=== PATIENT | male | born 1950 | race Caucasian/White ===

== ENCOUNTER 2018-08-01 17:29 | Inpatient (IN) | payer OTHER, MEDICARE ==
[~2018-08-01] VITALS: Ht 167.6 cm; Wt 76.6 kg
[~2018-08-01 17:29] MED LIST: ATOR10TA9 PO; BENA20TA4 PO; BUSP5TAB2 PO; CELE200C PO; GABA600T PO; METF500T17 PO; OXYC10TA6 PO; TOPI50TA8 PO
[2018-08-01] MEDS ORDERED: SODIUM CHLORIDE 0.9%, 500ML IVBOLUS ONE (18:00)
[2018-08-01 18:32] LABS: TROPONIN I < 0.015 ng/mL (0.000-0.045)
[2018-08-01] MEDS ORDERED: SODIUM CHLORIDE 0.9% 1,000ML IVBOLUS ONE (19:00)
[2018-08-01 22:23] LABS: MICROSCOPIC INDICATED
[2018-08-01 22:26] LABS: CULTURE INDICATED? NO
[2018-08-01 22:34] LABS: AMPHETAMINE SCREEN, URINE Negative (Negative); BARBITURATE SCREEN, URINE Positive (Negative); BENZODIAZEPINE SCREEN, URINE Negative (Negative); CANNABINOID SCREEN, URINE Negative (Negative); COCAINE SCREEN, URINE Negative (Negative); METHADONE SCREEN, URINE Negative (Negative); OPIATE SCREEN, URINE Positive (Negative)
[2018-08-02] MEDS ORDERED: SODIUM CHLORIDE 0.9% 1,000 ML IV SCH ×3 (00:08→15:00)
[2018-08-02] MEDS ORDERED: DEXTROSE 4 GM TAB.CHEW PO PRN (00:30)
[2018-08-02] MEDS ORDERED: PHARMACY MAY ADJ FOR RENAL FX MC SCH (00:30)
[2018-08-02] MEDS: INSULIN LISPRO 100 UNITS/ML, PEN SQ-INSULIN SCH ×5 (00:30→21:32)
[2018-08-02] MEDS ORDERED: DEXTROSE 50%, 50ML SYRINGE IVPush PRN (00:30)
[2018-08-02] MEDS ORDERED: GLUCAGON 1 MG IM PRN (00:30)
[2018-08-02 00:37] VITALS: BP 138/73
[2018-08-02] MEDS: HEPARIN 5,000 UNITS/ML, 1ML SQ SCH ×3 (01:09→17:01)
[2018-08-02] MEDS: PIPERACILLIN/TAZO/PMX 3.375GM 50 ML IV SCH ×3 (01:12→17:02)
[2018-08-02] MEDS ORDERED: SODIUM CHLORIDE 0.9% 1,000ML IVBOLUS ONE (03:00)
[2018-08-02] MEDS: SODIUM CHLORIDE FLUSH 10ML SYR IVF SCH ×2 (09:00→21:33)
[2018-08-02 09:26] LABS: ALANINE AMINOTRANSFERASE 63 U/L (12-78); ALBUMIN 2.2 g/dL (3.4-5.0); ANION GAP 10 mmol/L (5-15); CALCIUM 9.8 mg/dL (8.5-10.1); CHLORIDE 104 mmol/L (98-107); CREATININE 0.95 mg/dL (0.7-1.3)
[2018-08-02 09:28] LABS: ALKALINE PHOSPHATASE 535 U/L (45-117); BILIRUBIN,TOTAL 0.8 mg/dL (0.2-1.0); TOTAL PROTEIN 9.3 g/dL (6.4-8.2)
[2018-08-02 09:38] LABS: BASOPHILS # (AUTO) 0.01 x10^3/uL (0-0.1); BASOPHILS % (AUTO) 0 % (0-1); EOSINOPHILS # (AUTO) 0.02 x10^3/uL (0-0.4); EOSINOPHILS % (AUTO) 0 % (1-7); LYMPHOCYTES % (AUTO) 9 % (22-44); MD NO; MEAN CORPUSCULAR HEMOGLOBIN 31.8 pg (27.5-34.5); MEAN CORPUSCULAR HGB CONC 34.1 g/dL (33.2-36.2); MEAN PLATELET VOLUME 7.6 fL (7.4-10.4); MONOCYTES # (AUTO) 0.37 x10^3/uL (0.2-0.8); MONOCYTES % (AUTO) 3 % (2-9); NEUTROPHILS # (AUTO) 9.33 x10^3/uL (1.8-6.8); NEUTROPHILS % (AUTO) 87 % (42-75); PLATELET COUNT 692 x10^3/uL (130-400); RED BLOOD COUNT 3.93 x10^6/uL (4.38-5.82); RED CELL DISTRIBUTION WIDTH 13.1 % (9.4-14.8)
[2018-08-02] MEDS ORDERED: MORPHINE SULFATE 4 MG/ML, 1ML IVPush PRN (10:00)
[2018-08-02 10:43] VITALS: BP 128/77
[2018-08-02 12:56] VITALS: BP 119/72
[2018-08-02] MEDS ORDERED: LIDOCAINE-MPF 2%, 2ML ONE (13:26)
[2018-08-02] MEDS ORDERED: morphine SULFATE 10 MG/ML, 1ML ONE (13:33)
[2018-08-02] MEDS ORDERED: FENTANYL PF 100 MCG/2ML ONE (13:55)
[2018-08-02] MEDS ORDERED: MIDAZOLAM 1 MG/ML, 5ML ONE (13:55)
[2018-08-02] MEDS ORDERED: NALOXONE 1 MG/ML, 2ML ONE (13:55)
[2018-08-02] MEDS ORDERED: FLUMAZENIL 0.1 MG/1 ML, 5ML ONE (13:55)
[2018-08-02] MEDS: MORPHINE SULFATE 4 MG/ML, 1ML IVPush PRN ×2 (15:17→21:30)
[2018-08-02] MEDS ORDERED: LORazepam 0.5MG TABLET ONE (16:10)
[2018-08-02] MEDS: LORazepam 0.5MG TABLET PO PRN (16:14)
[2018-08-02] MEDS ORDERED: CARVEDILOL 6.25 MG TABLET ONE (16:57)
[2018-08-02] MEDS: CARVEDILOL 6.25 MG TABLET PO SCH (17:02)
[2018-08-02] MEDS ORDERED: OxyconTIN ER 10 MG TAB.ER ONE (17:18)
[2018-08-02] MEDS: OXYcodone IR 5MG TABLET PO PRN ×2 (17:25→23:03)
[2018-08-02 18:42] VITALS: BP 110/76
[2018-08-03] MEDS: PIPERACILLIN/TAZO/PMX 3.375GM 50 ML IV SCH ×4 (01:01→17:17)
[2018-08-03] MEDS: MORPHINE SULFATE 4 MG/ML, 1ML IVPush PRN ×3 (01:40→12:20)
[2018-08-03] MEDS: HEPARIN 5,000 UNITS/ML, 1ML SQ SCH ×3 (01:40→16:49)
[2018-08-03] MEDS: SODIUM CHLORIDE 0.9% 1,000 ML IV SCH ×3 (01:41→21:19)
[2018-08-03 03:53] VITALS: BP 139/88
[2018-08-03 05:34] LABS: ALBUMIN 1.9 g/dL (3.4-5.0); ANION GAP 13 mmol/L (5-15); CALCIUM 9.1 mg/dL (8.5-10.1); CHLORIDE 100 mmol/L (98-107)
[2018-08-03 05:36] LABS: BASOPHILS # (AUTO) 0.03 x10^3/uL (0-0.1); BASOPHILS % (AUTO) 0 % (0-1); EOSINOPHILS # (AUTO) 0.07 x10^3/uL (0-0.4); EOSINOPHILS % (AUTO) 1 % (1-7); LYMPHOCYTES # (AUTO) 1.29 x10^3/uL (1-3.4); LYMPHOCYTES % (AUTO) 14 % (22-44); MD NO; MEAN CORPUSCULAR HEMOGLOBIN 32.6 pg (27.5-34.5); MEAN CORPUSCULAR HGB CONC 34.6 g/dL (33.2-36.2); MEAN CORPUSCULAR VOLUME 94.3 fL (81-97); MEAN PLATELET VOLUME 7.5 fL (7.4-10.4); MONOCYTES # (AUTO) 0.52 x10^3/uL (0.2-0.8); MONOCYTES % (AUTO) 6 % (2-9); NEUTROPHILS # (AUTO) 7.26 x10^3/uL (1.8-6.8); NEUTROPHILS % (AUTO) 79 % (42-75); PLATELET COUNT 584 x10^3/uL (130-400); RED BLOOD COUNT 3.52 x10^6/uL (4.38-5.82); RED CELL DISTRIBUTION WIDTH 13.3 % (9.4-14.8)
[2018-08-03 05:38] LABS: ALANINE AMINOTRANSFERASE 50 U/L (12-78); ALKALINE PHOSPHATASE 487 U/L (45-117); BILIRUBIN,TOTAL 0.8 mg/dL (0.2-1.0); CREATININE 0.76 mg/dL (0.7-1.3); TOTAL PROTEIN 8.2 g/dL (6.4-8.2)
[2018-08-03] MEDS: OXYcodone IR 5MG TABLET PO PRN (05:55)
[2018-08-03] MEDS: CARVEDILOL 6.25 MG TABLET PO SCH ×2 (05:55→16:49)
[2018-08-03] MEDS: INSULIN LISPRO 100 UNITS/ML, PEN SQ-INSULIN SCH ×4 (07:00→21:18)
[2018-08-03] MEDS: SODIUM CHLORIDE FLUSH 10ML SYR IVF SCH ×2 (08:29→21:18)
[2018-08-03 08:45] VITALS: BP 133/94
[2018-08-03] MEDS: ONDANSETRON 2MG/ML, 2ML IVPush PRN (10:12)
[2018-08-03] MEDS: GABAPENTIN 300 MG CAPSULE PO SCH ×3 (10:13→21:17)
[2018-08-03] MEDS: BUSPIRONE 5 MG TABLET PO SCH ×2 (11:06→21:00)
[2018-08-03 14:47] VITALS: BP 131/90
[2018-08-03] MEDS ORDERED: BUSPIRONE 5 MG TABLET PO SCH (16:00)
[2018-08-03] MEDS: ONDANSETRON ODT 4 MG PO PRN (17:17)
[2018-08-03] MEDS ORDERED: OMNIPAQUE 350 MG/ML, 100ML BOTTLE ONE (19:48)
[2018-08-03 20:36] VITALS: BP 108/70
[2018-08-03] MEDS: ATORVASTATIN 10 MG TABLET PO SCH (21:17)
[2018-08-04] MEDS: PIPERACILLIN/TAZO/PMX 3.375GM 50 ML IV SCH ×4 (00:29→17:42)
[2018-08-04 01:53] VITALS: BP_SYST 108; BP_SYST 113; BP_DIAS 69; BP_DIAS 74
[2018-08-04] MEDS: HEPARIN 5,000 UNITS/ML, 1ML SQ SCH ×3 (02:01→17:34)
[2018-08-04 05:07] LABS: BASOPHILS # (AUTO) 0.03 x10^3/uL (0-0.1); BASOPHILS % (AUTO) 0 % (0-1); EOSINOPHILS # (AUTO) 0.07 x10^3/uL (0-0.4); EOSINOPHILS % (AUTO) 1 % (1-7); LYMPHOCYTES # (AUTO) 0.86 x10^3/uL (1-3.4); LYMPHOCYTES % (AUTO) 11 % (22-44); MD NO; MEAN CORPUSCULAR HGB CONC 35.1 g/dL (33.2-36.2); MEAN CORPUSCULAR VOLUME 94.1 fL (81-97); MEAN PLATELET VOLUME 7.4 fL (7.4-10.4); MONOCYTES # (AUTO) 0.44 x10^3/uL (0.2-0.8); MONOCYTES % (AUTO) 6 % (2-9); NEUTROPHILS # (AUTO) 6.42 x10^3/uL (1.8-6.8); NEUTROPHILS % (AUTO) 82 % (42-75); PLATELET COUNT 546 x10^3/uL (130-400); RED BLOOD COUNT 3.27 x10^6/uL (4.38-5.82); RED CELL DISTRIBUTION WIDTH 13.3 % (9.4-14.8)
[2018-08-04 05:24] LABS: CHLORIDE 101 mmol/L (98-107)
[2018-08-04 05:32] LABS: ALANINE AMINOTRANSFERASE 136 U/L (12-78); ALBUMIN 1.8 g/dL (3.4-5.0); ALKALINE PHOSPHATASE 564 U/L (45-117); ANION GAP 10 mmol/L (5-15); BILIRUBIN,TOTAL 0.5 mg/dL (0.2-1.0); CALCIUM 8.5 mg/dL (8.5-10.1); CREATININE 0.73 mg/dL (0.7-1.3); TOTAL PROTEIN 7.6 g/dL (6.4-8.2)
[2018-08-04] MEDS: SODIUM CHLORIDE 0.9% 1,000 ML IV SCH ×2 (05:38→17:34)
[2018-08-04] MEDS: GABAPENTIN 300 MG CAPSULE PO SCH ×4 (05:39→20:47)
[2018-08-04] MEDS: CARVEDILOL 6.25 MG TABLET PO SCH ×2 (05:39→17:34)
[2018-08-04] MEDS ORDERED: CALCIUM CARBONATE 500 MG TAB.CHEW PO PRN (08:00)
[2018-08-04] MEDS ORDERED: CALCIUM CARBONATE 500 MG TAB.CHEW ONE (08:02)
[2018-08-04] MEDS: BENAZEPRIL 20 MG TABLET PO SCH (08:07)
[2018-08-04] MEDS: INSULIN LISPRO 100 UNITS/ML, PEN SQ-INSULIN SCH ×4 (08:07→20:48)
[2018-08-04] MEDS: ONDANSETRON ODT 4 MG PO PRN ×3 (08:08→20:48)
[2018-08-04] MEDS: BUSPIRONE 5 MG TABLET PO SCH ×2 (08:08→20:47)
[2018-08-04] MEDS: SODIUM CHLORIDE FLUSH 10ML SYR IVF SCH ×2 (08:09→20:48)
[2018-08-04] MEDS ORDERED: BISACODYL 10 MG SUPP PR ONE (09:00)
[2018-08-04 09:07] VITALS: BP 114/77
[2018-08-04] MEDS: MORPHINE SULFATE 4 MG/ML, 1ML IVPush PRN (11:34)
[2018-08-04] MEDS ORDERED: TOPIRAMATE 100 MG TABLET ONE (13:13)
[2018-08-04] MEDS: TOPIRAMATE 25 MG TABLET PO SCH ×2 (13:25→20:47)
[2018-08-04 14:00] VITALS: BP 114/78
[2018-08-04] MEDS ORDERED: POLYETHYLENE GLYCOL 17 GM PACKET PO PRN (14:00)
[2018-08-04] MEDS: DOCUSATE 100 MG CAPSULE PO SCH (14:11)
[2018-08-04] MEDS ORDERED: SIMETHICONE 80 MG CHEW TAB PO PRN (18:30)
[2018-08-04 20:25] VITALS: BP 107/74
[2018-08-04] MEDS: ATORVASTATIN 10 MG TABLET PO SCH (20:47)
[2018-08-05] MEDS: PIPERACILLIN/TAZO/PMX 3.375GM 50 ML IV SCH ×4 (00:34→18:21)
[2018-08-05] MEDS: HEPARIN 5,000 UNITS/ML, 1ML SQ SCH ×3 (00:34→18:21)
[2018-08-05 02:17] VITALS: BP 99/61
[2018-08-05 04:38] LABS: ALANINE AMINOTRANSFERASE 121 U/L (12-78); ALBUMIN 1.6 g/dL (3.4-5.0); ANION GAP 12 mmol/L (5-15); CALCIUM 8.6 mg/dL (8.5-10.1); CHLORIDE 102 mmol/L (98-107); CREATININE 0.57 mg/dL (0.7-1.3)
[2018-08-05 04:41] LABS: ALKALINE PHOSPHATASE 522 U/L (45-117); BILIRUBIN,TOTAL 0.6 mg/dL (0.2-1.0)
[2018-08-05 04:42] LABS: BASOPHILS # (AUTO) 0.03 x10^3/uL (0-0.1); BASOPHILS % (AUTO) 1 % (0-1); EOSINOPHILS % (AUTO) 2 % (1-7); LYMPHOCYTES # (AUTO) 1.34 x10^3/uL (1-3.4); LYMPHOCYTES % (AUTO) 23 % (22-44); MD NO; MEAN CORPUSCULAR HEMOGLOBIN 32.4 pg (27.5-34.5); MEAN CORPUSCULAR HGB CONC 34.4 g/dL (33.2-36.2); MEAN CORPUSCULAR VOLUME 94.2 fL (81-97); MEAN PLATELET VOLUME 7.7 fL (7.4-10.4); MONOCYTES # (AUTO) 0.39 x10^3/uL (0.2-0.8); MONOCYTES % (AUTO) 7 % (2-9); NEUTROPHILS # (AUTO) 3.92 x10^3/uL (1.8-6.8); NEUTROPHILS % (AUTO) 68 % (42-75); PLATELET COUNT 464 x10^3/uL (130-400); RED BLOOD COUNT 2.92 x10^6/uL (4.38-5.82); RED CELL DISTRIBUTION WIDTH 13.3 % (9.4-14.8)
[2018-08-05] MEDS: GABAPENTIN 300 MG CAPSULE PO SCH ×4 (06:17→20:50)
[2018-08-05] MEDS: ONDANSETRON ODT 4 MG PO PRN ×3 (06:17→18:21)
[2018-08-05] MEDS: SODIUM CHLORIDE 0.9% 1,000 ML IV SCH ×2 (06:17→18:21)
[2018-08-05] MEDS: CARVEDILOL 6.25 MG TABLET PO SCH ×2 (06:17→18:21)
[2018-08-05] MEDS: INSULIN LISPRO 100 UNITS/ML, PEN SQ-INSULIN SCH ×4 (07:00→20:50)
[2018-08-05 07:07] VITALS: BP 105/69
[2018-08-05] MEDS ORDERED: BISACODYL 10 MG SUPP PR PRN (09:00)
[2018-08-05] MEDS: BUSPIRONE 5 MG TABLET PO SCH ×2 (09:35→20:49)
[2018-08-05] MEDS: BENAZEPRIL 20 MG TABLET PO SCH (09:35)
[2018-08-05] MEDS: TOPIRAMATE 25 MG TABLET PO SCH ×2 (09:35→20:50)
[2018-08-05] MEDS: DOCUSATE 100 MG CAPSULE PO SCH (09:35)
[2018-08-05] MEDS: SODIUM CHLORIDE FLUSH 10ML SYR IVF SCH ×2 (09:36→20:49)
[2018-08-05] MEDS ORDERED: DIPHENHYDRAMINE 25 MG CAPSULE PO ONE (12:00)
[2018-08-05] MEDS ORDERED: LIDODERM 5% PATCH TD SCH (12:00)
[2018-08-05] MEDS: LIDOCAINE 4% CREAM 5GM TUBE TP PRN ×2 (13:04→23:47)
[2018-08-05] MEDS ORDERED: HYDROCORTISONE CRM 0.5%, 30GM TP SCH (13:30)
[2018-08-05 14:20] VITALS: BP 99/64
[2018-08-05 20:00] VITALS: BP 109/72
[2018-08-05] MEDS: GUAIFENESIN ER 600 MG TABLET PO SCH (20:49)
[2018-08-05] MEDS: ATORVASTATIN 10 MG TABLET PO SCH (20:49)
[2018-08-05] MEDS: HYDROCORTISONE OINT 0.5%, 30GM TP SCH (20:57)
[2018-08-05] MEDS ORDERED: HYDROCORTISONE OINT 0.5%, 30GM TP SCH (21:00)
[2018-08-06] MEDS: HEPARIN 5,000 UNITS/ML, 1ML SQ SCH ×3 (01:13→17:15)
[2018-08-06] MEDS: PIPERACILLIN/TAZO/PMX 3.375GM 50 ML IV SCH ×4 (01:14→19:57)
[2018-08-06 02:00] VITALS: BP 121/80
[2018-08-06 05:23] LABS: BASOPHILS # (AUTO) 0.02 x10^3/uL (0-0.1); BASOPHILS % (AUTO) 1 % (0-1); EOSINOPHILS # (AUTO) 0.16 x10^3/uL (0-0.4); EOSINOPHILS % (AUTO) 3 % (1-7); LYMPHOCYTES % (AUTO) 30 % (22-44); MD NO; MEAN CORPUSCULAR HEMOGLOBIN 32.2 pg (27.5-34.5); MEAN CORPUSCULAR HGB CONC 34.4 g/dL (33.2-36.2); MEAN CORPUSCULAR VOLUME 93.6 fL (81-97); MEAN PLATELET VOLUME 7.4 fL (7.4-10.4); MONOCYTES # (AUTO) 0.32 x10^3/uL (0.2-0.8); MONOCYTES % (AUTO) 6 % (2-9); NEUTROPHILS # (AUTO) 3.01 x10^3/uL (1.8-6.8); NEUTROPHILS % (AUTO) 60 % (42-75); PLATELET COUNT 440 x10^3/uL (130-400); RED BLOOD COUNT 3.01 x10^6/uL (4.38-5.82); RED CELL DISTRIBUTION WIDTH 13.3 % (9.4-14.8)
[2018-08-06 05:27] LABS: CHLORIDE 109 mmol/L (98-107)
[2018-08-06 05:36] LABS: ALANINE AMINOTRANSFERASE 125 U/L (12-78); ALBUMIN 1.6 g/dL (3.4-5.0); ALKALINE PHOSPHATASE 582 U/L (45-117); ANION GAP 5 mmol/L (5-15); BILIRUBIN,TOTAL 0.9 mg/dL (0.2-1.0); CALCIUM 8.7 mg/dL (8.5-10.1); CREATININE 0.66 mg/dL (0.7-1.3); TOTAL PROTEIN 7.6 g/dL (6.4-8.2)
[2018-08-06] MEDS: CARVEDILOL 6.25 MG TABLET PO SCH ×2 (06:17→17:16)
[2018-08-06] MEDS: GABAPENTIN 300 MG CAPSULE PO SCH ×4 (06:17→20:39)
[2018-08-06] MEDS: SODIUM CHLORIDE 0.9% 1,000 ML IV SCH (06:18)
[2018-08-06] MEDS: INSULIN LISPRO 100 UNITS/ML, PEN SQ-INSULIN SCH ×4 (07:00→20:40)
[2018-08-06 08:19] VITALS: BP 107/71
[2018-08-06] MEDS: HYDROCORTISONE OINT 0.5%, 30GM TP SCH ×3 (09:00→20:59)
[2018-08-06] MEDS: BUSPIRONE 5 MG TABLET PO SCH ×2 (09:16→20:39)
[2018-08-06] MEDS: TOPIRAMATE 25 MG TABLET PO SCH ×2 (09:16→20:38)
[2018-08-06] MEDS: DOCUSATE 100 MG CAPSULE PO SCH (09:16)
[2018-08-06] MEDS: BENAZEPRIL 20 MG TABLET PO SCH (09:17)
[2018-08-06] MEDS: SODIUM CHLORIDE FLUSH 10ML SYR IVF SCH ×2 (09:17→20:38)
[2018-08-06] MEDS ORDERED: FUROSEMIDE 20 MG/2 ML IV ONE (09:30)
[2018-08-06] MEDS ORDERED: ALBUTEROL SULFATE 2.5 MG/3 ML ONE (10:34)
[2018-08-06] MEDS ORDERED: ALBUTEROL SULFATE 2.5 MG/3 ML NPPB ONE (11:00)
[2018-08-06] MEDS ORDERED: ALBUTEROL SULFATE 2.5 MG/3 ML NPPB PRN (12:00)
[2018-08-06 13:00] VITALS: BP 107/68
[2018-08-06] MEDS: LIDOCAINE 4% CREAM 5GM TUBE TP PRN (13:23)
[2018-08-06 20:33] VITALS: BP 113/69
[2018-08-06] MEDS: ATORVASTATIN 10 MG TABLET PO SCH (20:38)
[2018-08-06] MEDS: GUAIFENESIN ER 600 MG TABLET PO SCH (20:38)
[2018-08-06] MEDS: ONDANSETRON ODT 4 MG PO PRN (20:38)
[2018-08-06] MEDS: LORazepam 0.5MG TABLET PO PRN (20:39)
[2018-08-06] MEDS: ONDANSETRON 2MG/ML, 2ML IVPush PRN (20:39)
[2018-08-07] MEDS: PIPERACILLIN/TAZO/PMX 3.375GM 50 ML IV SCH ×4 (01:24→20:10)
[2018-08-07] MEDS: HEPARIN 5,000 UNITS/ML, 1ML SQ SCH ×3 (01:24→16:26)
[2018-08-07 01:26] VITALS: BP 116/83
[2018-08-07 03:35] VITALS: BP 122/71
[2018-08-07] MEDS: ONDANSETRON ODT 4 MG PO PRN ×3 (05:12→18:42)
[2018-08-07] MEDS: LORazepam 0.5MG TABLET PO PRN (05:12)
[2018-08-07] MEDS: ONDANSETRON 2MG/ML, 2ML IVPush PRN (05:13)
[2018-08-07] MEDS: CARVEDILOL 6.25 MG TABLET PO SCH ×2 (05:13→17:25)
[2018-08-07] MEDS: GABAPENTIN 300 MG CAPSULE PO SCH ×4 (05:16→20:11)
[2018-08-07 05:22] LABS: BASOPHILS # (AUTO) 0.03 x10^3/uL (0-0.1); BASOPHILS % (AUTO) 1 % (0-1); EOSINOPHILS # (AUTO) 0.15 x10^3/uL (0-0.4); EOSINOPHILS % (AUTO) 3 % (1-7); LYMPHOCYTES # (AUTO) 1.55 x10^3/uL (1-3.4); LYMPHOCYTES % (AUTO) 29 % (22-44); MD NO; MEAN CORPUSCULAR HEMOGLOBIN 31.8 pg (27.5-34.5); MEAN CORPUSCULAR VOLUME 93.6 fL (81-97); MEAN PLATELET VOLUME 7.7 fL (7.4-10.4); MONOCYTES # (AUTO) 0.35 x10^3/uL (0.2-0.8); MONOCYTES % (AUTO) 7 % (2-9); NEUTROPHILS % (AUTO) 61 % (42-75); PLATELET COUNT 448 x10^3/uL (130-400); RED BLOOD COUNT 3.24 x10^6/uL (4.38-5.82); RED CELL DISTRIBUTION WIDTH 13.3 % (9.4-14.8)
[2018-08-07 05:36] LABS: ALBUMIN 1.8 g/dL (3.4-5.0); ANION GAP 8 mmol/L (5-15); CHLORIDE 107 mmol/L (98-107)
[2018-08-07 05:40] LABS: ALANINE AMINOTRANSFERASE 99 U/L (12-78); ALKALINE PHOSPHATASE 543 U/L (45-117); BILIRUBIN,TOTAL 0.5 mg/dL (0.2-1.0); TOTAL PROTEIN 7.9 g/dL (6.4-8.2)
[2018-08-07 06:23] VITALS: BP 100/64
[2018-08-07] MEDS: INSULIN LISPRO 100 UNITS/ML, PEN SQ-INSULIN SCH ×4 (07:00→20:12)
[2018-08-07] MEDS: BUSPIRONE 5 MG TABLET PO SCH ×2 (09:00→20:10)
[2018-08-07] MEDS: HYDROCORTISONE OINT 0.5%, 30GM TP SCH ×3 (09:00→20:36)
[2018-08-07] MEDS: SODIUM CHLORIDE FLUSH 10ML SYR IVF SCH ×2 (09:30→20:10)
[2018-08-07] MEDS: TOPIRAMATE 25 MG TABLET PO SCH ×2 (09:31→20:11)
[2018-08-07] MEDS: BENAZEPRIL 20 MG TABLET PO SCH (09:31)
[2018-08-07] MEDS: DOCUSATE 100 MG CAPSULE PO SCH (09:31)
[2018-08-07] MEDS ORDERED: OMNIPAQUE 350 MG/ML, 100ML BOTTLE ONE (11:04)
[2018-08-07] MEDS: LIDOCAINE 4% CREAM 5GM TUBE TP PRN (14:00)
[2018-08-07 15:37] VITALS: BP 91/63
[2018-08-07 15:55] VITALS: BP 106/63
[2018-08-07] MEDS: ATORVASTATIN 10 MG TABLET PO SCH (20:11)
[2018-08-07] MEDS: GUAIFENESIN ER 600 MG TABLET PO SCH (20:11)
[2018-08-07 21:22] VITALS: BP 107/72
[2018-08-08] MEDS: HEPARIN 5,000 UNITS/ML, 1ML SQ SCH ×3 (01:00→17:00)
[2018-08-08 01:05] VITALS: BP 118/69
[2018-08-08] MEDS: LORazepam 0.5MG TABLET PO PRN (01:08)
[2018-08-08] MEDS: PIPERACILLIN/TAZO/PMX 3.375GM 50 ML IV SCH ×4 (01:52→21:56)
[2018-08-08] MEDS: CARVEDILOL 6.25 MG TABLET PO SCH ×2 (05:55→18:31)
[2018-08-08] MEDS: GABAPENTIN 300 MG CAPSULE PO SCH ×4 (06:00→21:57)
[2018-08-08 07:50] LABS: ALANINE AMINOTRANSFERASE 69 U/L (12-78); ALBUMIN 1.7 g/dL (3.4-5.0); ANION GAP 8 mmol/L (5-15); CALCIUM 8.8 mg/dL (8.5-10.1); CHLORIDE 110 mmol/L (98-107); CREATININE 0.69 mg/dL (0.7-1.3)
[2018-08-08 07:52] LABS: ALKALINE PHOSPHATASE 430 U/L (45-117); BILIRUBIN,TOTAL 0.5 mg/dL (0.2-1.0); TOTAL PROTEIN 7.6 g/dL (6.4-8.2)
[2018-08-08] MEDS: INSULIN LISPRO 100 UNITS/ML, PEN SQ-INSULIN SCH ×4 (08:02→21:58)
[2018-08-08 08:04] VITALS: BP 101/63
[2018-08-08 08:48] LABS: BASOPHILS # (AUTO) 0.05 x10^3/uL (0-0.1); BASOPHILS % (AUTO) 1 % (0-1); EOSINOPHILS # (AUTO) 0.14 x10^3/uL (0-0.4); EOSINOPHILS % (AUTO) 3 % (1-7); LYMPHOCYTES # (AUTO) 1.52 x10^3/uL (1-3.4); LYMPHOCYTES % (AUTO) 30 % (22-44); MD NO; MEAN CORPUSCULAR HEMOGLOBIN 31.8 pg (27.5-34.5); MEAN CORPUSCULAR HGB CONC 33.9 g/dL (33.2-36.2); MEAN CORPUSCULAR VOLUME 93.6 fL (81-97); MEAN PLATELET VOLUME 7.8 fL (7.4-10.4); MONOCYTES % (AUTO) 6 % (2-9); NEUTROPHILS # (AUTO) 3.06 x10^3/uL (1.8-6.8); NEUTROPHILS % (AUTO) 60 % (42-75); PLATELET COUNT 439 x10^3/uL (130-400); RED BLOOD COUNT 3.04 x10^6/uL (4.38-5.82); RED CELL DISTRIBUTION WIDTH 13.3 % (9.4-14.8)
[2018-08-08] MEDS: SODIUM CHLORIDE FLUSH 10ML SYR IVF SCH ×2 (08:52→21:58)
[2018-08-08] MEDS: DOCUSATE 100 MG CAPSULE PO SCH (08:53)
[2018-08-08] MEDS: BUSPIRONE 5 MG TABLET PO SCH ×2 (08:53→21:58)
[2018-08-08] MEDS: BENAZEPRIL 20 MG TABLET PO SCH (08:54)
[2018-08-08] MEDS: HYDROCORTISONE OINT 0.5%, 30GM TP SCH ×3 (08:55→21:59)
[2018-08-08] MEDS: TOPIRAMATE 25 MG TABLET PO SCH ×2 (09:02→21:57)
[2018-08-08] MEDS: ONDANSETRON ODT 4 MG PO PRN ×2 (09:11→22:00)
[2018-08-08] MEDS: LIDOCAINE 4% CREAM 5GM TUBE TP PRN ×2 (10:46→16:00)
[2018-08-08 12:14] VITALS: BP 94/58
[2018-08-08] MEDS ORDERED: LIDOCAINE-MPF 2%, 2ML ONE ×2 (13:18→13:45)
[2018-08-08] MEDS ORDERED: MIDAZOLAM 1 MG/ML, 5ML ONE (13:28)
[2018-08-08] MEDS ORDERED: FENTANYL PF 100 MCG/2ML ONE (13:28)
[2018-08-08] MEDS ORDERED: FLUMAZENIL 0.1 MG/1 ML, 5ML ONE (13:28)
[2018-08-08] MEDS ORDERED: NALOXONE 1 MG/ML, 2ML ONE (13:29)
[2018-08-08 20:00] VITALS: BP 102/67
[2018-08-08] MEDS: ATORVASTATIN 10 MG TABLET PO SCH (21:57)
[2018-08-08] MEDS: GUAIFENESIN ER 600 MG TABLET PO SCH (21:57)
[2018-08-09] MEDS: HEPARIN 5,000 UNITS/ML, 1ML SQ SCH ×3 (01:04→18:10)
[2018-08-09 02:00] VITALS: BP 106/69
[2018-08-09] MEDS: PIPERACILLIN/TAZO/PMX 3.375GM 50 ML IV SCH ×2 (03:49→04:01)
[2018-08-09 04:46] LABS: BASOPHILS # (AUTO) 0.04 x10^3/uL (0-0.1); BASOPHILS % (AUTO) 1 % (0-1); EOSINOPHILS # (AUTO) 0.18 x10^3/uL (0-0.4); EOSINOPHILS % (AUTO) 4 % (1-7); LYMPHOCYTES # (AUTO) 1.74 x10^3/uL (1-3.4); LYMPHOCYTES % (AUTO) 35 % (22-44); MD NO; MEAN CORPUSCULAR HEMOGLOBIN 31.6 pg (27.5-34.5); MEAN CORPUSCULAR HGB CONC 33.4 g/dL (33.2-36.2); MEAN CORPUSCULAR VOLUME 94.4 fL (81-97); MEAN PLATELET VOLUME 7.5 fL (7.4-10.4); MONOCYTES # (AUTO) 0.27 x10^3/uL (0.2-0.8); MONOCYTES % (AUTO) 5 % (2-9); NEUTROPHILS # (AUTO) 2.79 x10^3/uL (1.8-6.8); NEUTROPHILS % (AUTO) 56 % (42-75); PLATELET COUNT 457 x10^3/uL (130-400); RED BLOOD COUNT 3.21 x10^6/uL (4.38-5.82); RED CELL DISTRIBUTION WIDTH 13.7 % (9.4-14.8)
[2018-08-09 04:56] LABS: CHLORIDE 107 mmol/L (98-107)
[2018-08-09 05:03] LABS: ALANINE AMINOTRANSFERASE 85 U/L (12-78); ALBUMIN 1.7 g/dL (3.4-5.0); ALKALINE PHOSPHATASE 628 U/L (45-117); ANION GAP 10 mmol/L (5-15); BILIRUBIN,TOTAL 0.4 mg/dL (0.2-1.0); CALCIUM 8.9 mg/dL (8.5-10.1); CREATININE 0.73 mg/dL (0.7-1.3); TOTAL PROTEIN 7.5 g/dL (6.4-8.2)
[2018-08-09] MEDS: GABAPENTIN 300 MG CAPSULE PO SCH ×4 (05:53→21:04)
[2018-08-09] MEDS: CARVEDILOL 6.25 MG TABLET PO SCH ×3 (05:54→17:54)
[2018-08-09] MEDS: INSULIN LISPRO 100 UNITS/ML, PEN SQ-INSULIN SCH ×4 (07:00→21:00)
[2018-08-09 07:48] VITALS: BP 108/71
[2018-08-09] MEDS: SODIUM CHLORIDE FLUSH 10ML SYR IVF SCH ×2 (09:00→21:02)
[2018-08-09] MEDS: BUSPIRONE 5 MG TABLET PO SCH ×2 (09:00→21:03)
[2018-08-09] MEDS: HYDROCORTISONE OINT 0.5%, 30GM TP SCH ×3 (09:00→21:00)
[2018-08-09] MEDS: BENAZEPRIL 20 MG TABLET PO SCH (09:45)
[2018-08-09] MEDS: TOPIRAMATE 25 MG TABLET PO SCH ×2 (09:47→21:04)
[2018-08-09] MEDS: DOCUSATE 100 MG CAPSULE PO SCH (09:48)
[2018-08-09 13:55] VITALS: BP 112/72
[2018-08-09] MEDS ORDERED: PIPERACILLIN/TAZO 3.375 GM in SODIUM CHLORIDE 0.9% 50 ML IV SCH (16:00)
[2018-08-09 20:00] VITALS: BP 117/75
[2018-08-09] MEDS: ATORVASTATIN 10 MG TABLET PO SCH (21:04)
[2018-08-09] MEDS: GUAIFENESIN ER 600 MG TABLET PO SCH (21:04)
[2018-08-09] MEDS: LIDOCAINE 4% CREAM 5GM TUBE TP PRN (21:15)
[2018-08-10 01:14] VITALS: BP 111/69
[2018-08-10] MEDS: PIPERACILLIN/TAZO/PMX 3.375GM 50 ML IV SCH ×4 (05:04→22:26)
[2018-08-10] MEDS: CARVEDILOL 6.25 MG TABLET PO SCH ×2 (05:05→18:00)
[2018-08-10] MEDS: HEPARIN 5,000 UNITS/ML, 1ML SQ SCH ×3 (05:05→20:00)
[2018-08-10] MEDS: GABAPENTIN 300 MG CAPSULE PO SCH ×4 (05:05→21:19)
[2018-08-10 05:36] LABS: CHLORIDE 111 mmol/L (98-107)
[2018-08-10 05:48] LABS: ALANINE AMINOTRANSFERASE 61 U/L (12-78); ALBUMIN 1.9 g/dL (3.4-5.0); ALKALINE PHOSPHATASE 524 U/L (45-117); ANION GAP 11 mmol/L (5-15); BILIRUBIN,TOTAL 0.8 mg/dL (0.2-1.0); CALCIUM 9.1 mg/dL (8.5-10.1); CREATININE 0.61 mg/dL (0.7-1.3); TOTAL PROTEIN 7.7 g/dL (6.4-8.2)
[2018-08-10 07:27] VITALS: BP 116/73
[2018-08-10] MEDS: INSULIN LISPRO 100 UNITS/ML, PEN SQ-INSULIN SCH ×4 (08:11→21:00)
[2018-08-10] MEDS: BENAZEPRIL 20 MG TABLET PO SCH (09:42)
[2018-08-10] MEDS: BUSPIRONE 5 MG TABLET PO SCH ×2 (09:44→21:00)
[2018-08-10] MEDS: DOCUSATE 100 MG CAPSULE PO SCH (09:44)
[2018-08-10] MEDS: TOPIRAMATE 25 MG TABLET PO SCH ×2 (09:45→21:19)
[2018-08-10] MEDS: SODIUM CHLORIDE FLUSH 10ML SYR IVF SCH ×2 (09:45→21:00)
[2018-08-10] MEDS: HYDROCORTISONE OINT 0.5%, 30GM TP SCH ×3 (09:46→21:00)
[2018-08-10] MEDS: ONDANSETRON ODT 4 MG PO PRN ×2 (09:57→17:36)
[2018-08-10 12:45] VITALS: BP 97/63
[2018-08-10 14:07] VITALS: BP 99/65
[2018-08-10] MEDS: LORazepam 0.5MG TABLET PO PRN ×2 (15:10→22:30)
[2018-08-10 17:43] VITALS: BP 107/68
[2018-08-10] MEDS: ATORVASTATIN 10 MG TABLET PO SCH (21:19)
[2018-08-10] MEDS: GUAIFENESIN ER 600 MG TABLET PO SCH (21:19)
[2018-08-10 21:30] VITALS: BP 113/74
[2018-08-11 01:21] VITALS: BP 106/72
[2018-08-11] MEDS: HEPARIN 5,000 UNITS/ML, 1ML SQ SCH ×3 (04:00→20:23)
[2018-08-11] MEDS: CARVEDILOL 6.25 MG TABLET PO SCH ×3 (04:56→17:54)
[2018-08-11] MEDS: PIPERACILLIN/TAZO/PMX 3.375GM 50 ML IV SCH ×4 (04:56→22:43)
[2018-08-11] MEDS: GABAPENTIN 300 MG CAPSULE PO SCH ×4 (04:56→20:24)
[2018-08-11 05:47] LABS: BASOPHILS # (AUTO) 0.04 x10^3/uL (0-0.1); BASOPHILS % (AUTO) 1 % (0-1); EOSINOPHILS # (AUTO) 0.17 x10^3/uL (0-0.4); EOSINOPHILS % (AUTO) 3 % (1-7); LYMPHOCYTES % (AUTO) 36 % (22-44); MD NO; MEAN CORPUSCULAR HEMOGLOBIN 31.8 pg (27.5-34.5); MEAN CORPUSCULAR VOLUME 93.6 fL (81-97); MEAN PLATELET VOLUME 7.6 fL (7.4-10.4); MONOCYTES # (AUTO) 0.33 x10^3/uL (0.2-0.8); MONOCYTES % (AUTO) 6 % (2-9); NEUTROPHILS # (AUTO) 3.05 x10^3/uL (1.8-6.8); NEUTROPHILS % (AUTO) 55 % (42-75); PLATELET COUNT 463 x10^3/uL (130-400); RED BLOOD COUNT 3.24 x10^6/uL (4.38-5.82); RED CELL DISTRIBUTION WIDTH 13.5 % (9.4-14.8)
[2018-08-11 05:58] LABS: CHLORIDE 109 mmol/L (98-107)
[2018-08-11 06:06] LABS: ALANINE AMINOTRANSFERASE 66 U/L (12-78); ALKALINE PHOSPHATASE 660 U/L (45-117); ANION GAP 8 mmol/L (5-15); BILIRUBIN,TOTAL 0.4 mg/dL (0.2-1.0); CALCIUM 9.1 mg/dL (8.5-10.1); CREATININE 0.84 mg/dL (0.7-1.3); TOTAL PROTEIN 7.6 g/dL (6.4-8.2)
[2018-08-11] MEDS: INSULIN LISPRO 100 UNITS/ML, PEN SQ-INSULIN SCH ×4 (07:00→20:01)
[2018-08-11 07:10] VITALS: BP 97/60
[2018-08-11] MEDS: BUSPIRONE 5 MG TABLET PO SCH ×2 (09:00→20:24)
[2018-08-11] MEDS: HYDROCORTISONE OINT 0.5%, 30GM TP SCH ×3 (09:00→20:23)
[2018-08-11] MEDS: SODIUM CHLORIDE FLUSH 10ML SYR IVF SCH ×2 (09:00→20:25)
[2018-08-11] MEDS: DOCUSATE 100 MG CAPSULE PO SCH (09:36)
[2018-08-11] MEDS: BENAZEPRIL 20 MG TABLET PO SCH (09:36)
[2018-08-11] MEDS: TOPIRAMATE 25 MG TABLET PO SCH ×2 (09:36→20:23)
[2018-08-11 12:30] VITALS: BP 105/66
[2018-08-11 19:42] VITALS: BP 108/71
[2018-08-11] MEDS: GUAIFENESIN ER 600 MG TABLET PO SCH (20:23)
[2018-08-11] MEDS: ATORVASTATIN 10 MG TABLET PO SCH (20:23)
[2018-08-11] MEDS: LORazepam 0.5MG TABLET PO PRN (20:28)
[2018-08-11] MEDS: ONDANSETRON ODT 4 MG PO PRN (20:28)
[2018-08-12 01:18] VITALS: BP 99/67
[2018-08-12] MEDS: HEPARIN 5,000 UNITS/ML, 1ML SQ SCH ×3 (04:00→21:44)
[2018-08-12] MEDS: PIPERACILLIN/TAZO/PMX 3.375GM 50 ML IV SCH ×4 (04:00→21:44)
[2018-08-12] MEDS: CARVEDILOL 6.25 MG TABLET PO SCH ×3 (06:00→17:53)
[2018-08-12] MEDS: GABAPENTIN 300 MG CAPSULE PO SCH ×4 (06:15→21:43)
[2018-08-12] MEDS: INSULIN LISPRO 100 UNITS/ML, PEN SQ-INSULIN SCH ×4 (07:00→21:48)
[2018-08-12 07:59] VITALS: BP 102/70
[2018-08-12] MEDS: HYDROCORTISONE OINT 0.5%, 30GM TP SCH ×3 (09:00→21:48)
[2018-08-12] MEDS: SODIUM CHLORIDE FLUSH 10ML SYR IVF SCH ×2 (09:00→21:44)
[2018-08-12] MEDS: BUSPIRONE 5 MG TABLET PO SCH ×2 (09:00→21:00)
[2018-08-12] MEDS: BENAZEPRIL 20 MG TABLET PO SCH (09:00)
[2018-08-12] MEDS ORDERED: OMNIPAQUE 350 MG/ML, 100ML BOTTLE ONE (10:26)
[2018-08-12] MEDS: TOPIRAMATE 25 MG TABLET PO SCH ×2 (10:47→21:43)
[2018-08-12] MEDS: DOCUSATE 100 MG CAPSULE PO SCH (10:48)
[2018-08-12] MEDS: ONDANSETRON ODT 4 MG PO PRN (10:48)
[2018-08-12 14:00] VITALS: BP 96/60
[2018-08-12 20:00] VITALS: BP 121/75
[2018-08-12] MEDS: LORazepam 0.5MG TABLET PO PRN (21:43)
[2018-08-12] MEDS: GUAIFENESIN ER 600 MG TABLET PO SCH (21:43)
[2018-08-12] MEDS: ATORVASTATIN 10 MG TABLET PO SCH (21:43)
[2018-08-13] MEDS: HEPARIN 5,000 UNITS/ML, 1ML SQ SCH ×3 (03:12→21:34)
[2018-08-13] MEDS: PIPERACILLIN/TAZO/PMX 3.375GM 50 ML IV SCH ×4 (03:35→22:36)
[2018-08-13 03:50] VITALS: BP 112/73
[2018-08-13 03:58] LABS: BASOPHILS # (AUTO) 0.06 x10^3/uL (0-0.1); BASOPHILS % (AUTO) 1 % (0-1); EOSINOPHILS # (AUTO) 0.33 x10^3/uL (0-0.4); EOSINOPHILS % (AUTO) 5 % (1-7); LYMPHOCYTES # (AUTO) 2.52 x10^3/uL (1-3.4); LYMPHOCYTES % (AUTO) 36 % (22-44); MD NO; MEAN CORPUSCULAR HEMOGLOBIN 31.2 pg (27.5-34.5); MEAN CORPUSCULAR HGB CONC 33.3 g/dL (33.2-36.2); MEAN CORPUSCULAR VOLUME 93.7 fL (81-97); MEAN PLATELET VOLUME 7.6 fL (7.4-10.4); MONOCYTES # (AUTO) 0.41 x10^3/uL (0.2-0.8); MONOCYTES % (AUTO) 6 % (2-9); NEUTROPHILS # (AUTO) 3.59 x10^3/uL (1.8-6.8); NEUTROPHILS % (AUTO) 52 % (42-75); PLATELET COUNT 513 x10^3/uL (130-400); RED BLOOD COUNT 3.52 x10^6/uL (4.38-5.82); RED CELL DISTRIBUTION WIDTH 14.1 % (9.4-14.8)
[2018-08-13 04:09] LABS: ALBUMIN 2.3 g/dL (3.4-5.0); ANION GAP 8 mmol/L (5-15); CALCIUM 9.4 mg/dL (8.5-10.1); CHLORIDE 108 mmol/L (98-107)
[2018-08-13 04:13] LABS: ALANINE AMINOTRANSFERASE 81 U/L (12-78); ALKALINE PHOSPHATASE 654 U/L (45-117); BILIRUBIN,TOTAL 0.4 mg/dL (0.2-1.0); CREATININE 0.82 mg/dL (0.7-1.3); TOTAL PROTEIN 8.3 g/dL (6.4-8.2)
[2018-08-13] MEDS: CARVEDILOL 6.25 MG TABLET PO SCH ×2 (06:00→17:53)
[2018-08-13] MEDS: GABAPENTIN 300 MG CAPSULE PO SCH ×4 (06:17→21:35)
[2018-08-13] MEDS: INSULIN LISPRO 100 UNITS/ML, PEN SQ-INSULIN SCH ×4 (07:00→21:00)
[2018-08-13 07:27] VITALS: BP 114/76
[2018-08-13] MEDS: HYDROCORTISONE OINT 0.5%, 30GM TP SCH ×3 (09:00→22:10)
[2018-08-13] MEDS: BUSPIRONE 5 MG TABLET PO SCH ×2 (09:00→21:00)
[2018-08-13] MEDS: SODIUM CHLORIDE FLUSH 10ML SYR IVF SCH ×2 (09:12→21:34)
[2018-08-13] MEDS: BENAZEPRIL 20 MG TABLET PO SCH (09:12)
[2018-08-13] MEDS: TOPIRAMATE 25 MG TABLET PO SCH ×2 (09:13→21:34)
[2018-08-13] MEDS: DOCUSATE 100 MG CAPSULE PO SCH (09:13)
[2018-08-13] MEDS: LIDOCAINE 4% CREAM 5GM TUBE TP PRN ×2 (10:55→22:10)
[2018-08-13 14:31] VITALS: BP 103/68
[2018-08-13] MEDS: ONDANSETRON ODT 4 MG PO PRN (14:36)
[2018-08-13 20:20] VITALS: BP 105/76
[2018-08-13] MEDS ORDERED: BUSPIRONE 10 MG TABLET ONE (21:20)
[2018-08-13] MEDS: ATORVASTATIN 10 MG TABLET PO SCH (21:35)
[2018-08-13] MEDS: GUAIFENESIN ER 600 MG TABLET PO SCH (21:35)
[2018-08-14 01:33] VITALS: BP 104/67
[2018-08-14] MEDS: PIPERACILLIN/TAZO/PMX 3.375GM 50 ML IV SCH (04:32)
[2018-08-14] MEDS: HEPARIN 5,000 UNITS/ML, 1ML SQ SCH ×3 (05:30→20:52)
[2018-08-14 05:58] LABS: ALBUMIN 2.4 g/dL (3.4-5.0); ANION GAP 11 mmol/L (5-15); CALCIUM 9.2 mg/dL (8.5-10.1); CHLORIDE 108 mmol/L (98-107)
[2018-08-14] MEDS: CARVEDILOL 6.25 MG TABLET PO SCH ×2 (06:00→17:17)
[2018-08-14 06:02] LABS: ALANINE AMINOTRANSFERASE 86 U/L (12-78); ALKALINE PHOSPHATASE 732 U/L (45-117); BILIRUBIN,TOTAL 0.4 mg/dL (0.2-1.0); TOTAL PROTEIN 7.9 g/dL (6.4-8.2)
[2018-08-14] MEDS: GABAPENTIN 300 MG CAPSULE PO SCH ×4 (06:02→20:43)
[2018-08-14] MEDS: LORazepam 0.5MG TABLET PO PRN ×2 (06:02→20:43)
[2018-08-14] MEDS: INSULIN LISPRO 100 UNITS/ML, PEN SQ-INSULIN SCH ×4 (06:03→20:51)
[2018-08-14 07:23] VITALS: BP 101/65
[2018-08-14] MEDS: SODIUM CHLORIDE FLUSH 10ML SYR IVF SCH ×2 (09:00→20:46)
[2018-08-14] MEDS: TOPIRAMATE 25 MG TABLET PO SCH ×2 (09:21→20:43)
[2018-08-14] MEDS: BUSPIRONE 5 MG TABLET PO SCH ×2 (09:21→20:45)
[2018-08-14] MEDS: DOCUSATE 100 MG CAPSULE PO SCH (09:21)
[2018-08-14] MEDS: BENAZEPRIL 20 MG TABLET PO SCH (09:22)
[2018-08-14] MEDS: HYDROCORTISONE OINT 0.5%, 30GM TP SCH ×3 (09:24→20:43)
[2018-08-14 13:16] VITALS: BP 106/67
[2018-08-14 19:20] VITALS: BP 109/67
[2018-08-14] MEDS: ONDANSETRON ODT 4 MG PO PRN (20:43)
[2018-08-14] MEDS: GUAIFENESIN ER 600 MG TABLET PO SCH (20:43)
[2018-08-14] MEDS ORDERED: BUSPIRONE 10 MG TABLET ONE (20:45)
[2018-08-14] MEDS: ATORVASTATIN 10 MG TABLET PO SCH (20:50)
[2018-08-15 04:07] VITALS: BP 125/80
[2018-08-15] MEDS: HEPARIN 5,000 UNITS/ML, 1ML SQ SCH (04:28)
[2018-08-15 05:31] LABS: ALANINE AMINOTRANSFERASE 60 U/L (12-78); ALBUMIN 2.5 g/dL (3.4-5.0); ANION GAP 11 mmol/L (5-15); CALCIUM 9.4 mg/dL (8.5-10.1); CHLORIDE 111 mmol/L (98-107); CREATININE 0.76 mg/dL (0.7-1.3)
[2018-08-15 05:33] LABS: ALKALINE PHOSPHATASE 635 U/L (45-117); BILIRUBIN,TOTAL 0.3 mg/dL (0.2-1.0); TOTAL PROTEIN 7.8 g/dL (6.4-8.2)
[2018-08-15 05:47] LABS: BASOPHILS # (AUTO) 0.06 x10^3/uL (0-0.1); BASOPHILS % (AUTO) 1 % (0-1); EOSINOPHILS # (AUTO) 0.24 x10^3/uL (0-0.4); EOSINOPHILS % (AUTO) 3 % (1-7); LYMPHOCYTES # (AUTO) 2.13 x10^3/uL (1-3.4); LYMPHOCYTES % (AUTO) 28 % (22-44); MD NO; MEAN CORPUSCULAR HEMOGLOBIN 32.2 pg (27.5-34.5); MEAN CORPUSCULAR VOLUME 94.6 fL (81-97); MEAN PLATELET VOLUME 7.8 fL (7.4-10.4); MONOCYTES # (AUTO) 0.43 x10^3/uL (0.2-0.8); MONOCYTES % (AUTO) 6 % (2-9); NEUTROPHILS # (AUTO) 4.85 x10^3/uL (1.8-6.8); NEUTROPHILS % (AUTO) 63 % (42-75); PLATELET COUNT 523 x10^3/uL (130-400); RED BLOOD COUNT 3.44 x10^6/uL (4.38-5.82); RED CELL DISTRIBUTION WIDTH 14.3 % (9.4-14.8)
[2018-08-15] MEDS: INSULIN LISPRO 100 UNITS/ML, PEN SQ-INSULIN SCH ×2 (06:10→11:00)
[2018-08-15] MEDS: GABAPENTIN 300 MG CAPSULE PO SCH ×2 (06:16→09:48)
[2018-08-15] MEDS: CARVEDILOL 6.25 MG TABLET PO SCH (06:17)
[2018-08-15 07:46] VITALS: BP 104/67
[2018-08-15] MEDS: SODIUM CHLORIDE FLUSH 10ML SYR IVF SCH (09:00)
[2018-08-15] MEDS: DOCUSATE 100 MG CAPSULE PO SCH (09:00)
[2018-08-15] MEDS ORDERED: CARV6.2512 PO (09:44)
[2018-08-15] MEDS ORDERED: ONDA4TAB13 PO (09:44)
[2018-08-15] MEDS ORDERED: DOCU-131 PO (09:44)
[2018-08-15] MEDS: BUSPIRONE 5 MG TABLET PO SCH (09:47)
[2018-08-15] MEDS: TOPIRAMATE 25 MG TABLET PO SCH (09:49)
[2018-08-15] MEDS: BENAZEPRIL 20 MG TABLET PO SCH (09:49)
[2018-08-15] MEDS: HYDROCORTISONE OINT 0.5%, 30GM TP SCH (09:51)
[2018-08-15] MEDS: ONDANSETRON ODT 4 MG PO PRN (09:54)
[2018-08-15] MEDS: LORazepam 0.5MG TABLET PO PRN (09:54)
== END 2018-08-15 12:45 | disposition home or self-care (01) | DRG 393 ==
LOC: ED 21:31 → EDIP 23:21 → 4NOR 23:55 → 4WST 08-02 07:42 → 4NOR 08-13 18:25 → DCLOUNGE 08-15 12:10
PROVIDERS: ADMIT Family Medicine; ATTEND Family Medicine
PROC: 0F9530Z Drainage of Right Hepatic Duct with Drainage Device, Percutaneous Approach (ICD-10-PCS; 2018-08-02)
PROC: 5A09357 Assistance with Respiratory Ventilation, Less than 24 Consecutive Hours, Continuous Positive Airway Pressure (ICD-10-PCS; principal; 2018-08-04)
PROC: 5A09357 Assistance with Respiratory Ventilation, Less than 24 Consecutive Hours, Continuous Positive Airway Pressure (ICD-10-PCS; 2018-08-05)
PROC: 0F9 Hepatobiliary System and Pancreas, Drainage (ICD-10-PCS; 2018-08-08)
PROC: 5A09357 Assistance with Respiratory Ventilation, Less than 24 Consecutive Hours, Continuous Positive Airway Pressure (ICD-10-PCS; 2018-08-15)
DX: K91.89 Other postprocedural complications and disorders of digestive system (principal); G93.40 Encephalopathy, unspecified; E43 Unspecified severe protein-calorie malnutrition; N17.0 Acute kidney failure with tubular necrosis; E87.1 Hypo-osmolality and hyponatremia; K81.0 Acute cholecystitis; Y83.8 Other surgical procedures as the cause of abnormal reaction of the patient, or of later complication, without mention of misadventure at the time of the procedure; D64.9 Anemia, unspecified; E11.9 Type 2 diabetes mellitus without complications; E78.5 Hyperlipidemia, unspecified; E86.1 Hypovolemia; G43.909 Migraine, unspecified, not intractable, without status migrainosus; G47.33 Obstructive sleep apnea (adult) (pediatric); G89.29 Other chronic pain; I10 Essential (primary) hypertension; M26.629 Arthralgia of temporomandibular joint, unspecified side; Z79.891 Long term (current) use of opiate analgesic; Z82.49 Family history of ischemic heart disease and other diseases of the circulatory system; Z87.442 Personal history of urinary calculi; Z90.49 Acquired absence of other specified parts of digestive tract; Z68.27 Body mass index [BMI] 27.0-27.9, adult
CPT/HCPCS: 36415; 75989; 84145; 99285; J7613; 49405; 70450; 71045; 71275; 74160; 74176; 78226; 80053; 80307; 81001; 82140; 82247; 82962; 83605; 83690; 83735; 84100; 84484; 85025; 85379; 87040; 87070; 87075; 87086; 87205; 93005; 93970; 94640; 96360; 96361; 99156; 99157; C1894; G0378; J1644; J2250; J2270; J2405; J2543; J3010; J3490; Q0162; Q9967; A9537; C1729; C1769; C9898; J1815; J1940; J2310; J7030; J7040; Q0163

== ENCOUNTER → 2018-09-04 | Outpatient (CLI) | payer MEDICARE, OTHER ==
[~2018-09-04] MED LIST changes: +CARV6.2512 PO; +DOCU-131 PO; +ONDA4TAB13 PO
[2018-09-04 15:44] LABS: BASOPHILS # (AUTO) 0.03 x10^3/uL (0-0.1); BASOPHILS % (AUTO) 0 % (0-1); EOSINOPHILS # (AUTO) 0.22 x10^3/uL (0-0.4); EOSINOPHILS % (AUTO) 3 % (1-7); LYMPHOCYTES # (AUTO) 1.83 x10^3/uL (1-3.4); LYMPHOCYTES % (AUTO) 26 % (22-44); MD NO; MEAN CORPUSCULAR HGB CONC 33.2 g/dL (33.2-36.2); MEAN CORPUSCULAR VOLUME 93.5 fL (81-97); MEAN PLATELET VOLUME 8.1 fL (7.4-10.4); MONOCYTES # (AUTO) 0.28 x10^3/uL (0.2-0.8); MONOCYTES % (AUTO) 4 % (2-9); NEUTROPHILS # (AUTO) 4.67 x10^3/uL (1.8-6.8); NEUTROPHILS % (AUTO) 67 % (42-75); PLATELET COUNT 281 x10^3/uL (130-400); RED BLOOD COUNT 4.25 x10^6/uL (4.38-5.82); RED CELL DISTRIBUTION WIDTH 15.3 % (9.4-14.8)
== END | disposition home or self-care (01) ==
LOC: CFH 14:42
PROVIDERS: ATTEND Surgery
DX: Z48.815 Encounter for surgical aftercare following surgery on the digestive system (principal); R18.8 Other ascites
CPT/HCPCS: 36415; 85025

== ENCOUNTER → 2020-05-20 | Outpatient (CLI) | payer MEDICARE, OTHER ==
[~2020-05-20] MED LIST changes: -BENA20TA4 PO; +BENA20TA54 PO; +OMNIPAQUE 350 MG/ML, 75ML BOTTLE ONE
[2020-05-20 15:07] LABS: CREATININE 0.75 mg/dL (0.7-1.3)
== END | disposition home or self-care (01) ==
LOC: RAD 14:26
PROVIDERS: ATTEND Internal Medicine
DX: J90 Pleural effusion, not elsewhere classified (principal); J81.1 Chronic pulmonary edema
CPT/HCPCS: 36415; 71275; 82565; Q9967

== ENCOUNTER 2020-05-26 14:23 | Outpatient (CLI) | payer MEDICARE, OTHER ==
[~2020-05-26 14:23] MED LIST changes: -OMNIPAQUE 350 MG/ML, 75ML BOTTLE ONE
== END 2020-05-26 23:59 | disposition home or self-care (01) ==
LOC: CVU 14:23
PROVIDERS: ATTEND Internal Medicine
DX: I08.0 Rheumatic disorders of both mitral and aortic valves (principal); E11.9 Type 2 diabetes mellitus without complications; I10 Essential (primary) hypertension; Z96.659 Presence of unspecified artificial knee joint
CPT/HCPCS: 93306

== ENCOUNTER → 2020-06-09 | Outpatient (CLI) | payer MEDICARE ==
[~2020-06-09] MED LIST changes: +REGADENOSON 0.4 MG/5 ML SYRINGE ONE
== END | disposition home or self-care (01) ==
LOC: CFH 11:55
PROVIDERS: ATTEND Internal Medicine Cardiovascular Disease
DX: I45.19 Other right bundle-branch block (principal); I10 Essential (primary) hypertension; E11.9 Type 2 diabetes mellitus without complications; E78.5 Hyperlipidemia, unspecified
CPT/HCPCS: 78452; 93017; A9502; J2785

== ENCOUNTER → 2020-08-11 | Outpatient (CLI) | payer MEDICARE, OTHER ==
[~2020-08-11] MED LIST changes: -REGADENOSON 0.4 MG/5 ML SYRINGE ONE
== END | disposition home or self-care (01) ==
LOC: RAD 12:39
PROVIDERS: ATTEND Family Medicine
DX: J84.9 Interstitial pulmonary disease, unspecified (principal); J90 Pleural effusion, not elsewhere classified; R93.89 Abnormal findings on diagnostic imaging of other specified body structures
CPT/HCPCS: 71250

== ENCOUNTER 2020-09-17 10:06 | Day surgery (SDC) | payer MEDICARE, OTHER ==
[~2020-09-17] VITALS: Ht 167.6 cm; Wt 68.2 kg
[2020-09-17] MEDS ORDERED: SODIUM CHLORIDE 0.9% 1,000 ML IV SCH ×2 (10:30→14:30)
[2020-09-17 10:48] VITALS: BP 103/62
[2020-09-17] MEDS ORDERED: OXYC-306 PO (11:06)
[2020-09-17] MEDS ORDERED: OMEP20TA62 PO (11:06)
[2020-09-17] MEDS ORDERED: FURO20TA3 PO (11:06)
[2020-09-17] MEDS ORDERED: BUTA1CAP59 PO (11:06)
[2020-09-17] MEDS ORDERED: CELE200C PO (11:06)
[2020-09-17] MEDS ORDERED: TOPI100T24 PO (11:06)
[2020-09-17] MEDS ORDERED: ZOLP10TA PO (11:06)
[2020-09-17] MEDS ORDERED: DICL112S2 TP (11:06)
[2020-09-17] MEDS ORDERED: VALA500T4 PO (11:06)
[2020-09-17] MEDS ORDERED: BACL-19 PO (11:06)
[2020-09-17] MEDS ORDERED: FLUT9.9S INH (11:06)
[2020-09-17] MEDS ORDERED: ARIP5TAB13 PO (11:06)
[2020-09-17] MEDS ORDERED: SERT100T32 PO (11:06)
[2020-09-17 11:23] LABS: BASOPHILS % (AUTO) 1 % (0-1); EOSINOPHILS % (AUTO) 6 % (1-7); LYMPHOCYTES % (AUTO) 23 % (22-44); MEAN CORPUSCULAR HEMOGLOBIN 31.7 pg (27.5-34.5); MEAN CORPUSCULAR HGB CONC 33.5 g/dL (33.2-36.2); MEAN PLATELET VOLUME 7.5 fL (7.4-10.4); MONOCYTES % (AUTO) 4 % (2-9); NEUTROPHILS % (AUTO) 67 % (42-75); PLATELET COUNT 303 x10^3/uL (130-400); RED BLOOD COUNT 4.27 x10^6/uL (4.38-5.82); RED CELL DISTRIBUTION WIDTH 13.1 % (9.4-14.8)
[2020-09-17 11:25] LABS: ANION GAP 5 mmol/L (5-15); CHLORIDE 106 mmol/L (98-107); CREATININE 0.76 mg/dL (0.7-1.3); MD NO
[2020-09-17] MEDS ORDERED: HEPARIN 1,000 UNITS/ML, 10ML ONE (13:20)
[2020-09-17] MEDS ORDERED: LIDOCAINE-MPF 1%, 5ML ONE (13:20)
[2020-09-17] MEDS ORDERED: VERAPAMIL 2.5 MG/ML, 2ML ONE (13:20)
[2020-09-17] MEDS ORDERED: FENTANYL PF 100 MCG/2ML ONE (13:20)
[2020-09-17] MEDS ORDERED: MIDAZOLAM 1 MG/ML, 5ML ONE (13:20)
[2020-09-17] MEDS ORDERED: NITROGLYCERIN 30 MCG/ML, 20ML VIAL ONE (13:30)
== END 2020-09-17 16:29 | disposition home or self-care (01) ==
LOC: CACL 10:06
PROVIDERS: ATTEND Internal Medicine Cardiovascular Disease
DX: R06.02 Shortness of breath (principal); R09.02 Hypoxemia; I10 Essential (primary) hypertension; M81.0 Age-related osteoporosis without current pathological fracture; E11.9 Type 2 diabetes mellitus without complications; E78.5 Hyperlipidemia, unspecified; F41.9 Anxiety disorder, unspecified; G47.30 Sleep apnea, unspecified; Z90.49 Acquired absence of other specified parts of digestive tract; Z98.890 Other specified postprocedural states; Z79.899 Other long term (current) drug therapy; Z88.8 Allergy status to other drugs, medicaments and biological substances; Z72.89 Other problems related to lifestyle; Z82.49 Family history of ischemic heart disease and other diseases of the circulatory system; Z83.3 Family history of diabetes mellitus
CPT/HCPCS: 36415; 80048; 82330; 82803; 82947; 84132; 84295; 85014; 85025; 93460; 99156; 99157; C1769; C1894; J1644; J2250; J3010; Q9967

== ENCOUNTER → 2020-10-20 | Outpatient (CLI) | payer MEDICARE, OTHER ==
[~2020-10-20] MED LIST changes: +ARIP5TAB13 PO; +BACL-19 PO; +BUTA1CAP59 PO; +DICL112S2 TP; +FLUT9.9S INH; +FURO20TA3 PO; +OMEP20TA62 PO; +OXYC-306 PO; +SERT100T32 PO; +TOPI100T24 PO; +VALA500T4 PO; +ZOLP10TA PO
== END | disposition home or self-care (01) ==
LOC: CFH 15:23
PROVIDERS: ATTEND Internal Medicine
DX: J84.9 Interstitial pulmonary disease, unspecified (principal)
CPT/HCPCS: 71250

== ENCOUNTER → 2021-01-16 | Outpatient (CLI) | payer MEDICARE ==
[~2021-01-16] MED LIST changes: -OXYC-306 PO; +OXYC1TAB17 PO
== END | disposition home or self-care (01) ==
LOC: WOUND 11:30
PROVIDERS: ATTEND Internal Medicine
DX: E11.622 Type 2 diabetes mellitus with other skin ulcer (principal); L89.43 Pressure ulcer of contiguous site of back, buttock and hip, stage 3; L98.411 Non-pressure chronic ulcer of buttock limited to breakdown of skin; L98.421 Non-pressure chronic ulcer of back limited to breakdown of skin; L89.159 Pressure ulcer of sacral region, unspecified stage; L98.491 Non-pressure chronic ulcer of skin of other sites limited to breakdown of skin; J84.170 Interstitial lung disease with progressive fibrotic phenotype in diseases classified elsewhere; J96.91 Respiratory failure, unspecified with hypoxia; I10 Essential (primary) hypertension; G47.30 Sleep apnea, unspecified; E78.5 Hyperlipidemia, unspecified; K21.9 Gastro-esophageal reflux disease without esophagitis; F32.9 Major depressive disorder, single episode, unspecified; F41.9 Anxiety disorder, unspecified; F11.90 Opioid use, unspecified, uncomplicated; Z79.84 Long term (current) use of oral hypoglycemic drugs; Z79.899 Other long term (current) drug therapy; Z98.49 Cataract extraction status, unspecified eye; Z90.49 Acquired absence of other specified parts of digestive tract
CPT/HCPCS: 97597; 97598; G0463

== ENCOUNTER → 2021-01-23 | Outpatient (CLI) | payer MEDICARE | END | disposition home or self-care (01) | LOC: WOUND 11:00 | PROVIDERS: ATTEND Internal Medicine | DX: E11.622 Type 2 diabetes mellitus with other skin ulcer (principal); L89.322 Pressure ulcer of left buttock, stage 2; L89.312 Pressure ulcer of right buttock, stage 2; L98.411 Non-pressure chronic ulcer of buttock limited to breakdown of skin; L89.43 Pressure ulcer of contiguous site of back, buttock and hip, stage 3; L98.421 Non-pressure chronic ulcer of back limited to breakdown of skin; L98.491 Non-pressure chronic ulcer of skin of other sites limited to breakdown of skin; J84.170 Interstitial lung disease with progressive fibrotic phenotype in diseases classified elsewhere; J96.91 Respiratory failure, unspecified with hypoxia; I10 Essential (primary) hypertension; E78.5 Hyperlipidemia, unspecified; K21.9 Gastro-esophageal reflux disease without esophagitis; E55.9 Vitamin D deficiency, unspecified; G47.33 Obstructive sleep apnea (adult) (pediatric); G43.809 Other migraine, not intractable, without status migrainosus; F32.9 Major depressive disorder, single episode, unspecified; F41.9 Anxiety disorder, unspecified; F11.90 Opioid use, unspecified, uncomplicated; Z79.84 Long term (current) use of oral hypoglycemic drugs; Z87.891 Personal history of nicotine dependence; Z90.49 Acquired absence of other specified parts of digestive tract; Z79.52 Long term (current) use of systemic steroids; Z98.49 Cataract extraction status, unspecified eye; Z79.899 Other long term (current) drug therapy | CPT/HCPCS: 97597; 97598 ==

== ENCOUNTER 2021-01-30 10:38 | Outpatient (CLI) | payer MEDICARE | END 2021-01-30 23:59 | disposition home or self-care (01) | LOC: WOUND 10:38 | PROVIDERS: ATTEND Internal Medicine | DX: E11.622 Type 2 diabetes mellitus with other skin ulcer (principal); L89.323 Pressure ulcer of left buttock, stage 3; L98.411 Non-pressure chronic ulcer of buttock limited to breakdown of skin; L89.43 Pressure ulcer of contiguous site of back, buttock and hip, stage 3; L98.421 Non-pressure chronic ulcer of back limited to breakdown of skin; L98.491 Non-pressure chronic ulcer of skin of other sites limited to breakdown of skin; J84.170 Interstitial lung disease with progressive fibrotic phenotype in diseases classified elsewhere; J96.91 Respiratory failure, unspecified with hypoxia; I10 Essential (primary) hypertension; E78.5 Hyperlipidemia, unspecified; K21.9 Gastro-esophageal reflux disease without esophagitis; E55.9 Vitamin D deficiency, unspecified; G47.33 Obstructive sleep apnea (adult) (pediatric); G43.809 Other migraine, not intractable, without status migrainosus; F32.9 Major depressive disorder, single episode, unspecified; F41.9 Anxiety disorder, unspecified; G47.30 Sleep apnea, unspecified; F11.90 Opioid use, unspecified, uncomplicated; Z79.84 Long term (current) use of oral hypoglycemic drugs; Z79.52 Long term (current) use of systemic steroids; Z79.899 Other long term (current) drug therapy; Z87.891 Personal history of nicotine dependence; Z90.49 Acquired absence of other specified parts of digestive tract; Z98.49 Cataract extraction status, unspecified eye | CPT/HCPCS: 97597 ==

== ENCOUNTER 2021-02-06 09:49 | Outpatient (CLI) | payer MEDICARE | END 2021-02-06 23:59 | disposition home or self-care (01) | LOC: WOUND 09:49 | PROVIDERS: ATTEND Internal Medicine | DX: E11.622 Type 2 diabetes mellitus with other skin ulcer (principal); L89.323 Pressure ulcer of left buttock, stage 3; L89.313 Pressure ulcer of right buttock, stage 3; L98.411 Non-pressure chronic ulcer of buttock limited to breakdown of skin; L89.43 Pressure ulcer of contiguous site of back, buttock and hip, stage 3; L98.421 Non-pressure chronic ulcer of back limited to breakdown of skin; L98.491 Non-pressure chronic ulcer of skin of other sites limited to breakdown of skin; J84.170 Interstitial lung disease with progressive fibrotic phenotype in diseases classified elsewhere; J96.91 Respiratory failure, unspecified with hypoxia; I10 Essential (primary) hypertension; E78.5 Hyperlipidemia, unspecified; K21.9 Gastro-esophageal reflux disease without esophagitis; E55.9 Vitamin D deficiency, unspecified; G47.33 Obstructive sleep apnea (adult) (pediatric); G43.809 Other migraine, not intractable, without status migrainosus; F32.9 Major depressive disorder, single episode, unspecified; G89.29 Other chronic pain; F41.9 Anxiety disorder, unspecified; G47.30 Sleep apnea, unspecified; F11.90 Opioid use, unspecified, uncomplicated; Z79.84 Long term (current) use of oral hypoglycemic drugs; Z79.52 Long term (current) use of systemic steroids; Z79.899 Other long term (current) drug therapy; Z87.891 Personal history of nicotine dependence; Z90.49 Acquired absence of other specified parts of digestive tract; Z98.49 Cataract extraction status, unspecified eye | CPT/HCPCS: 97597 ==

== ENCOUNTER 2021-02-13 11:01 | Outpatient (CLI) | payer MEDICARE | END 2021-02-13 23:59 | disposition home or self-care (01) | LOC: WOUND 11:01 | PROVIDERS: ATTEND Internal Medicine | DX: E11.622 Type 2 diabetes mellitus with other skin ulcer (principal); L89.323 Pressure ulcer of left buttock, stage 3; L89.313 Pressure ulcer of right buttock, stage 3; L98.411 Non-pressure chronic ulcer of buttock limited to breakdown of skin; L89.43 Pressure ulcer of contiguous site of back, buttock and hip, stage 3; L98.421 Non-pressure chronic ulcer of back limited to breakdown of skin; L98.491 Non-pressure chronic ulcer of skin of other sites limited to breakdown of skin; J84.170 Interstitial lung disease with progressive fibrotic phenotype in diseases classified elsewhere; J96.91 Respiratory failure, unspecified with hypoxia; I10 Essential (primary) hypertension; E78.5 Hyperlipidemia, unspecified; K21.9 Gastro-esophageal reflux disease without esophagitis; E55.9 Vitamin D deficiency, unspecified; G47.33 Obstructive sleep apnea (adult) (pediatric); G43.809 Other migraine, not intractable, without status migrainosus; F32.9 Major depressive disorder, single episode, unspecified; G89.29 Other chronic pain; F41.9 Anxiety disorder, unspecified; G47.30 Sleep apnea, unspecified; F11.90 Opioid use, unspecified, uncomplicated; Z79.84 Long term (current) use of oral hypoglycemic drugs; Z79.52 Long term (current) use of systemic steroids; Z79.899 Other long term (current) drug therapy; Z87.891 Personal history of nicotine dependence; Z90.49 Acquired absence of other specified parts of digestive tract; Z98.49 Cataract extraction status, unspecified eye | CPT/HCPCS: 97597 ==

== ENCOUNTER 2021-02-27 10:22 | Outpatient (CLI) | payer MEDICARE ==
[~2021-02-27 10:22] MED LIST changes: +OXYC1TAB16 PO; -OXYC1TAB17 PO
== END 2021-02-27 23:59 | disposition home or self-care (01) ==
LOC: WOUND 10:22
PROVIDERS: ATTEND Internal Medicine
DX: E11.622 Type 2 diabetes mellitus with other skin ulcer (principal); L89.323 Pressure ulcer of left buttock, stage 3; L89.313 Pressure ulcer of right buttock, stage 3; L98.411 Non-pressure chronic ulcer of buttock limited to breakdown of skin; L89.43 Pressure ulcer of contiguous site of back, buttock and hip, stage 3; L98.421 Non-pressure chronic ulcer of back limited to breakdown of skin; L98.491 Non-pressure chronic ulcer of skin of other sites limited to breakdown of skin; J84.170 Interstitial lung disease with progressive fibrotic phenotype in diseases classified elsewhere; J96.91 Respiratory failure, unspecified with hypoxia; I10 Essential (primary) hypertension; E78.5 Hyperlipidemia, unspecified; K21.9 Gastro-esophageal reflux disease without esophagitis; E55.9 Vitamin D deficiency, unspecified; G47.33 Obstructive sleep apnea (adult) (pediatric); G43.809 Other migraine, not intractable, without status migrainosus; F32.9 Major depressive disorder, single episode, unspecified; G89.29 Other chronic pain; F41.9 Anxiety disorder, unspecified; G47.30 Sleep apnea, unspecified; F11.90 Opioid use, unspecified, uncomplicated; Z79.84 Long term (current) use of oral hypoglycemic drugs; Z79.52 Long term (current) use of systemic steroids; Z79.899 Other long term (current) drug therapy; Z87.891 Personal history of nicotine dependence; Z90.49 Acquired absence of other specified parts of digestive tract; Z98.49 Cataract extraction status, unspecified eye
CPT/HCPCS: 97597

== ENCOUNTER → 2021-03-13 | Outpatient (CLI) | payer MEDICARE ==
[~2021-03-13] MED LIST changes: -OXYC1TAB16 PO; +OXYC1TAB17 PO
== END | disposition home or self-care (01) ==
LOC: WOUND 10:27
PROVIDERS: ATTEND Internal Medicine
DX: E11.622 Type 2 diabetes mellitus with other skin ulcer (principal); L89.302 Pressure ulcer of unspecified buttock, stage 2; L98.411 Non-pressure chronic ulcer of buttock limited to breakdown of skin; L89.43 Pressure ulcer of contiguous site of back, buttock and hip, stage 3; L98.421 Non-pressure chronic ulcer of back limited to breakdown of skin; L98.491 Non-pressure chronic ulcer of skin of other sites limited to breakdown of skin; J84.170 Interstitial lung disease with progressive fibrotic phenotype in diseases classified elsewhere; J96.91 Respiratory failure, unspecified with hypoxia; I10 Essential (primary) hypertension; E78.5 Hyperlipidemia, unspecified; K21.9 Gastro-esophageal reflux disease without esophagitis; E55.9 Vitamin D deficiency, unspecified; G47.33 Obstructive sleep apnea (adult) (pediatric); G43.809 Other migraine, not intractable, without status migrainosus; F32.9 Major depressive disorder, single episode, unspecified; G89.29 Other chronic pain; F41.9 Anxiety disorder, unspecified; G47.30 Sleep apnea, unspecified; F11.90 Opioid use, unspecified, uncomplicated; Z79.84 Long term (current) use of oral hypoglycemic drugs; Z79.52 Long term (current) use of systemic steroids; Z79.899 Other long term (current) drug therapy; Z79.891 Long term (current) use of opiate analgesic; Z90.49 Acquired absence of other specified parts of digestive tract; Z98.49 Cataract extraction status, unspecified eye
CPT/HCPCS: G0463

== ENCOUNTER → 2021-04-03 | Outpatient (CLI) | payer MEDICARE | END | disposition home or self-care (01) | LOC: WOUND 10:36 | PROVIDERS: ATTEND Internal Medicine | DX: E11.622 Type 2 diabetes mellitus with other skin ulcer (principal); L89.43 Pressure ulcer of contiguous site of back, buttock and hip, stage 3; L98.421 Non-pressure chronic ulcer of back limited to breakdown of skin; L98.491 Non-pressure chronic ulcer of skin of other sites limited to breakdown of skin; J84.170 Interstitial lung disease with progressive fibrotic phenotype in diseases classified elsewhere; J96.91 Respiratory failure, unspecified with hypoxia; I10 Essential (primary) hypertension; E78.5 Hyperlipidemia, unspecified; K21.9 Gastro-esophageal reflux disease without esophagitis; E55.9 Vitamin D deficiency, unspecified; G47.33 Obstructive sleep apnea (adult) (pediatric); G43.809 Other migraine, not intractable, without status migrainosus; F32.9 Major depressive disorder, single episode, unspecified; G89.29 Other chronic pain; F41.9 Anxiety disorder, unspecified; G43.909 Migraine, unspecified, not intractable, without status migrainosus; F11.90 Opioid use, unspecified, uncomplicated; Z79.84 Long term (current) use of oral hypoglycemic drugs; Z79.52 Long term (current) use of systemic steroids; Z79.899 Other long term (current) drug therapy; Z90.49 Acquired absence of other specified parts of digestive tract; Z98.49 Cataract extraction status, unspecified eye | CPT/HCPCS: G0463 ==

== ENCOUNTER 2021-04-07 13:37 | Emergency (ER) | payer MEDICARE ==
[~2021-04-07] VITALS: Ht 167.6 cm; Wt 62.0 kg
--- NOTE | 2021-04-07 14:32 | NUR ---
PT WAS PLACED ON NRB MASK IN TRIAGE. SWITCHED FROM NRB TO OXYMASK AT 8L NOW; PT TOLERATING WELL, SPO2 99%. AT BS.
[2021-04-07 14:33] LABS: BASOPHILS % (AUTO) 1 % (0-1); EOSINOPHILS % (AUTO) 4 % (1-7); LYMPHOCYTES % (AUTO) 26 % (22-44); MD NO; MEAN CORPUSCULAR HEMOGLOBIN 32.8 pg (27.5-34.5); MEAN CORPUSCULAR HGB CONC 33.5 g/dL (33.2-36.2); MEAN PLATELET VOLUME 8.2 fL (7.4-10.4); MONOCYTES % (AUTO) 4 % (2-9); NEUTROPHILS % (AUTO) 66 % (42-75); PLATELET COUNT 250 x10^3/uL (130-400); RED BLOOD COUNT 3.72 x10^6/uL (4.38-5.82)
[2021-04-07 14:46] LABS: ALBUMIN 2.4 g/dL (3.4-5.0); ANION GAP 2 mmol/L (5-15); CALCIUM 9.4 mg/dL (8.5-10.1); CHLORIDE 104 mmol/L (98-107); CREATININE 0.42 mg/dL (0.7-1.3)
[2021-04-07 15:31] VITALS: BP 121/78
--- NOTE | 2021-04-07 15:33 | NUR ---
ERP WAS IN FOR RECHECK.
--- NOTE | 2021-04-07 16:09 | NUR ---
D/C INSTRUCTIONS, MEDS & F/U APPT RV'WD WITH PT, HE VERBALIZES UNDERSTANDING. RX GIVEN X2. INSTRUCTED TO RETURN TO ED FOR ANY WORSENING SYMPTOMS. ASSISTED OUT OF ED VIA WC AND PORTABLE O2 WITH .
== END 2021-04-07 16:09 | disposition home or self-care (01) ==
LOC: ED 16:03
DX: R06.00 Dyspnea, unspecified (principal); Z87.09 Personal history of other diseases of the respiratory system; R07.9 Chest pain, unspecified; R00.0 Tachycardia, unspecified
CPT/HCPCS: 36415; 71045; 80048; 82040; 83880; 85025; 93005; 99285

== ENCOUNTER 2021-07-02 11:30 | Inpatient (IN) | payer MEDICARE ==
[~2021-07-02] VITALS: Ht 167.6 cm; Wt 58.6 kg
--- NOTE | 2021-07-02 11:50 | NUR ---
EKG IN TRIAGE
[2021-07-02 12:44] LABS: BASOPHILS % (AUTO) 0 % (0-1); EOSINOPHILS % (AUTO) 1 % (1-7); LYMPHOCYTES % (AUTO) 24 % (22-44); MEAN CORPUSCULAR HEMOGLOBIN 34.3 pg (27.5-34.5); MEAN CORPUSCULAR HGB CONC 34.3 g/dL (33.2-36.2); MEAN PLATELET VOLUME 8.6 fL (7.4-10.4); MONOCYTES % (AUTO) 4 % (2-9); NEUTROPHILS % (AUTO) 71 % (42-75); PLATELET COUNT 201 x10^3/uL (130-400); RED BLOOD COUNT 3.41 x10^6/uL (4.38-5.82); RED CELL DISTRIBUTION WIDTH 13.7 % (9.4-14.8)
[2021-07-02 13:04] LABS: ALANINE AMINOTRANSFERASE 16 U/L (12-78); ALBUMIN 2.4 g/dL (3.4-5.0); ANION GAP 3 mmol/L (5-15); CALCIUM 10.5 mg/dL (8.5-10.1); CHLORIDE 89 mmol/L (98-107); CREATININE 0.32 mg/dL (0.7-1.3)
[2021-07-02 13:09] LABS: ALKALINE PHOSPHATASE 65 U/L (45-117); BILIRUBIN,TOTAL 0.4 mg/dL (0.2-1.0); TOTAL PROTEIN 8.1 g/dL (6.4-8.2)
--- NOTE | 2021-07-02 13:15 | NUR ---
RECEIVED REPORT FROM [place] OF CO2 REPORTED BY LAB. PT IMMEDIATELY BROUGHT BACK TO ROOM 31 FROM THE LOBBY.
[2021-07-02 13:45] LABS: O2 FLOW 6L L/min
[2021-07-02] MEDS ORDERED: ONDANSETRON 2MG/ML, 2ML IVPush ONE (14:30)
[2021-07-02] MEDS ORDERED: ONDANSETRON 2MG/ML, 2ML ONE (14:31)
[2021-07-02] MEDS: D5%-0.45% NACL 1,000 ML IV ONE ×2 (14:35→15:31)
--- NOTE | 2021-07-02 14:37 | NUR ---
PT TO IMAGING FOR ESOPHOGRAM
[2021-07-02] MEDS ORDERED: BENA10TA59 PO (15:51)
[2021-07-02] MEDS ORDERED: FURO-93 PO (15:54)
[2021-07-02] MEDS ORDERED: CLON0.5T20 PO (15:54)
[2021-07-02] MEDS ORDERED: NINT150C PO (15:55)
--- NOTE | 2021-07-02 15:56 | NUR ---
BREAK RN: MED REC UPDATED WITH PATIENT. PT REPORTS HE IS ALWAYS ON 6L NC. VS STABLE. AT BEDSIDE. CALL LIGHT IN PLACE. WILL CONTINUE TO MONITOR WHILE PRIMARY RN IS ON BREAK.
[2021-07-02] MEDS: SERTRALINE 100MG TABLET PO SCH (21:00)
[2021-07-02] MEDS: TOPIRAMATE 100 MG TABLET PO SCH (21:00)
[2021-07-02] MEDS: BACLOFEN 10 MG TABLET PO SCH (21:00)
[2021-07-02] MEDS ORDERED: VALACYCLOVIR 500MG TABLET PO PRN (21:00)
[2021-07-02] MEDS ORDERED: OXYcodone/APAP 7.5/325MG TABLET PO PRN (21:00)
[2021-07-02] MEDS: ATORVASTATIN 10 MG TABLET PO SCH (21:00)
[2021-07-02] MEDS ORDERED: LABETALOL 5MG/ML, 20ML IVPush PRN (21:30)
[2021-07-02] MEDS ORDERED: ONDANSETRON 2MG/ML, 2ML IVPush PRN (21:30)
[2021-07-02] MEDS ORDERED: ACETAMINOPHEN 325 MG TABLET PO PRN (21:30)
[2021-07-02] MEDS ORDERED: ONDANSETRON ODT 4 MG PO PRN (21:30)
--- NOTE | 2021-07-02 21:36 | NUR ---
REPORT FROM PHIL DELGADOCRIMINAL RESEARCHER OF CARE AT THIS TIME
[2021-07-02 22:05] LABS: TROPONIN I 0.064 ng/mL (0.000-0.045)
--- NOTE | 2021-07-02 23:16 | NUR ---
REPORT TO JOAO Tejeda, ALL QUESTIONS ADDRESSED PT READY FOR TRANSFER TO FLOOR
--- NOTE | 2021-07-03 00:14 | NUR ---
PT AND EDUCATED ON VISITATION HOURS, STS SHE MUST COME UP TO ROOM WITH PT. AGAIN VERBALIZED THIS IS NOT POSSIBLE AT THIS TIME. PT AGREES AND COMMUNICATED UNDERSTANDING
[2021-07-03 00:35] VITALS: BP 119/74
[2021-07-03] MEDS: AMPICILLIN/SULBACTAM 3 GM in SODIUM CHLORIDE 0.9% 100 ML IV SCH ×4 (01:31→23:34)
[2021-07-03] MEDS: ENOXAPARIN 40 MG/0.4 ML SQ SCH ×2 (01:45→21:06)
[2021-07-03] MEDS: LACTATED RINGERS 1,000 ML IV SCH ×2 (02:17→17:30)
[2021-07-03] MEDS: OXYcodone/APAP 5/325MG TABLET PO PRN ×2 (02:17→19:24)
[2021-07-03] MEDS: LIDOCAINE 4% CREAM 5GM TUBE TP PRN (02:27)
[2021-07-03 05:42] LABS: BASOPHILS % (AUTO) 0 % (0-1); EOSINOPHILS % (AUTO) 1 % (1-7); LYMPHOCYTES % (AUTO) 18 % (22-44); MEAN CORPUSCULAR HEMOGLOBIN 33.7 pg (27.5-34.5); MEAN CORPUSCULAR HGB CONC 33.7 g/dL (33.2-36.2); MONOCYTES % (AUTO) 3 % (2-9); NEUTROPHILS % (AUTO) 78 % (42-75); PLATELET COUNT 191 x10^3/uL (130-400); RED BLOOD COUNT 3.08 x10^6/uL (4.38-5.82); RED CELL DISTRIBUTION WIDTH 13.5 % (9.4-14.8)
[2021-07-03 06:04] LABS: CHLORIDE 90 mmol/L (98-107)
[2021-07-03 06:25] LABS: ANION GAP 2 mmol/L (5-15)
[2021-07-03 06:56] VITALS: BP 96/62
[2021-07-03] MEDS: BUDESONIDE 0.5 MG/2 ML INHA INH SCH ×2 (07:10→20:47)
[2021-07-03] MEDS: ALBUTEROL/IPRATROPIUM 2.5MG/0.5MG, 3 ML NPPB SCH ×4 (07:10→20:47)
[2021-07-03] MEDS ORDERED: DEXAMETHASONE 4 MG/ML, 1ML IVPush ONE (07:30)
[2021-07-03] MEDS: BACLOFEN 10 MG TABLET PO SCH ×3 (08:35→21:05)
[2021-07-03] MEDS: TOPIRAMATE 100 MG TABLET PO SCH ×3 (08:35→21:05)
[2021-07-03] MEDS ORDERED: FUROSEMIDE 40 MG/4 ML ONE (09:39)
[2021-07-03] MEDS ORDERED: FUROSEMIDE 40 MG/4 ML IV ONE (10:00)
[2021-07-03] MEDS: AZITHROMYCIN 500 MG in SODIUM CHLORIDE 0.9% 250 ML IV SCH (10:48)
[2021-07-03] MEDS ORDERED: ARTIFICIAL TEARS OINT 3.5 GM EACHEYE PRN (17:00)
[2021-07-03] MEDS: SERTRALINE 100MG TABLET PO SCH (21:05)
[2021-07-03] MEDS: ATORVASTATIN 10 MG TABLET PO SCH (21:05)
[2021-07-04] MEDS: OXYcodone/APAP 5/325MG TABLET PO PRN ×4 (02:59→21:12)
[2021-07-04 05:02] LABS: CHLORIDE 88 mmol/L (98-107)
[2021-07-04 05:14] LABS: ALANINE AMINOTRANSFERASE 14 U/L (12-78); ALBUMIN 1.9 g/dL (3.4-5.0); ALKALINE PHOSPHATASE 55 U/L (45-117); ANION GAP 7 mmol/L (5-15); BILIRUBIN,TOTAL 0.2 mg/dL (0.2-1.0); CALCIUM 9.6 mg/dL (8.5-10.1); CREATININE 0.24 mg/dL (0.7-1.3); TOTAL PROTEIN 6.9 g/dL (6.4-8.2)
[2021-07-04] MEDS: AMPICILLIN/SULBACTAM 3 GM in SODIUM CHLORIDE 0.9% 100 ML IV SCH ×4 (05:14→23:22)
[2021-07-04] MEDS: BUDESONIDE 0.5 MG/2 ML INHA INH SCH ×2 (09:03→18:59)
[2021-07-04] MEDS: ALBUTEROL/IPRATROPIUM 2.5MG/0.5MG, 3 ML NPPB SCH ×4 (09:03→18:59)
[2021-07-04] MEDS: BACLOFEN 10 MG TABLET PO SCH ×3 (09:41→21:11)
[2021-07-04] MEDS: TOPIRAMATE 100 MG TABLET PO SCH ×3 (09:41→21:12)
[2021-07-04] MEDS: AZITHROMYCIN 500 MG in SODIUM CHLORIDE 0.9% 250 ML IV SCH (09:42)
[2021-07-04] MEDS: ENOXAPARIN 40 MG/0.4 ML SQ SCH (21:11)
[2021-07-04] MEDS: ATORVASTATIN 10 MG TABLET PO SCH (21:11)
[2021-07-04] MEDS: SERTRALINE 100MG TABLET PO SCH (21:11)
[2021-07-05 04:25] LABS: BASOPHILS % (AUTO) 0 % (0-1); EOSINOPHILS % (AUTO) 0 % (1-7); LYMPHOCYTES % (AUTO) 18 % (22-44); MEAN CORPUSCULAR HEMOGLOBIN 34.1 pg (27.5-34.5); MEAN CORPUSCULAR HGB CONC 33.9 g/dL (33.2-36.2); MONOCYTES % (AUTO) 3 % (2-9); NEUTROPHILS % (AUTO) 78 % (42-75); PLATELET COUNT 162 x10^3/uL (130-400); RED BLOOD COUNT 2.87 x10^6/uL (4.38-5.82); RED CELL DISTRIBUTION WIDTH 13.4 % (9.4-14.8)
[2021-07-05 04:31] LABS: ALANINE AMINOTRANSFERASE 59 U/L (12-78); ANION GAP 6 mmol/L (5-15); CALCIUM 9.8 mg/dL (8.5-10.1); CHLORIDE 90 mmol/L (98-107)
[2021-07-05 04:34] LABS: ALKALINE PHOSPHATASE 120 U/L (45-117); BILIRUBIN,TOTAL 0.6 mg/dL (0.2-1.0); CREATININE 0.32 mg/dL (0.7-1.3); TOTAL PROTEIN 6.9 g/dL (6.4-8.2)
[2021-07-05] MEDS: AMPICILLIN/SULBACTAM 3 GM in SODIUM CHLORIDE 0.9% 100 ML IV SCH ×2 (05:12→12:25)
[2021-07-05] MEDS: OXYcodone/APAP 5/325MG TABLET PO PRN (05:14)
[2021-07-05] MEDS: ALBUTEROL/IPRATROPIUM 2.5MG/0.5MG, 3 ML NPPB SCH ×2 (07:00→09:54)
[2021-07-05] MEDS: POTASSIUM CHLORIDE 20 MEQ TAB.ER.PRT PO SCH ×2 (07:55→16:05)
[2021-07-05] MEDS: TOPIRAMATE 100 MG TABLET PO SCH ×2 (08:59→16:00)
[2021-07-05] MEDS: BACLOFEN 10 MG TABLET PO SCH ×2 (09:00→16:00)
[2021-07-05] MEDS: BUDESONIDE 0.5 MG/2 ML INHA INH SCH ×2 (09:00→09:54)
[2021-07-05] MEDS: AZITHROMYCIN 500 MG in SODIUM CHLORIDE 0.9% 250 ML IV SCH (10:20)
[2021-07-05] MEDS: LIDOCAINE 4% CREAM 5GM TUBE TP PRN (11:13)
[2021-07-05] MEDS ORDERED: FUROSEMIDE 40 MG/4 ML IV ONE (11:30)
[2021-07-05 12:14] VITALS: BP 95/59
[2021-07-05] MEDS ORDERED: MORPHINE SULFATE 4 MG/ML, 1ML IVPush PRN ×2 (16:30)
== END 2021-07-05 20:30 | DRG 189 ==
LOC: ED 13:46 → EDIP 19:10 → 5SO 07-03 00:39 → CCU 07-03 09:31 → 4NW 07-05 11:06
PROVIDERS: ADMIT Internal Medicine; ATTEND Internal Medicine
PROC: 5A09357 Assistance with Respiratory Ventilation, Less than 24 Consecutive Hours, Continuous Positive Airway Pressure (ICD-10-PCS; principal; 2021-07-03)
PROC: 5A0935A Assistance with Respiratory Ventilation, Less than 24 Consecutive Hours, High Flow/Velocity Cannula (ICD-10-PCS; 2021-07-04)
PROC: 5A09357 Assistance with Respiratory Ventilation, Less than 24 Consecutive Hours, Continuous Positive Airway Pressure (ICD-10-PCS; 2021-07-05)
PROC: 5A0935A Assistance with Respiratory Ventilation, Less than 24 Consecutive Hours, High Flow/Velocity Cannula (ICD-10-PCS; 2021-07-05)
DX: J96.22 Acute and chronic respiratory failure with hypercapnia (principal); E43 Unspecified severe protein-calorie malnutrition; I21.A1 Myocardial infarction type 2; E87.2 Acidosis; Z88.8 Allergy status to other drugs, medicaments and biological substances; D53.9 Nutritional anemia, unspecified; D70.9 Neutropenia, unspecified; E11.9 Type 2 diabetes mellitus without complications; E78.5 Hyperlipidemia, unspecified; Z66 Do not resuscitate; E87.8 Other disorders of electrolyte and fluid balance, not elsewhere classified; Z68.20 Body mass index [BMI] 20.0-20.9, adult; F32.9 Major depressive disorder, single episode, unspecified; G47.33 Obstructive sleep apnea (adult) (pediatric); I10 Essential (primary) hypertension; J32.0 Chronic maxillary sinusitis; J84.10 Pulmonary fibrosis, unspecified; J96.21 Acute and chronic respiratory failure with hypoxia; K22.4 Dyskinesia of esophagus; L89.159 Pressure ulcer of sacral region, unspecified stage; T17.928A Food in respiratory tract, part unspecified causing other injury, initial encounter; X58.XXXA Exposure to other specified factors, initial encounter; Y93.89 Activity, other specified; Y92.89 Other specified places as the place of occurrence of the external cause; Y99.8 Other external cause status; Z51.5 Encounter for palliative care; Z90.49 Acquired absence of other specified parts of digestive tract; Z91.19 Patient's noncompliance with other medical treatment and regimen; Z99.81 Dependence on supplemental oxygen
CPT/HCPCS: 36415; 36600; 70486; 71045; 74220; 80048; 80053; 82803; 83735; 83880; 84484; 85025; 87081; 93005; 94640; 94660; 96374; G0378; J0295; J0456; J1100; J1650; J1940; J2405; J7626; J7050; J7120